=== PATIENT | male | born 1965 | race Caucasian/White ===

== ENCOUNTER → 2021-08-03 13:33 | Outpatient (CLI) | payer OTHER, SELFPAY ==
--- NOTE | 2021-08-03 | DI.RAD.S_ITS ---
PROCEDURE: XR HIP W PEL IF DONE LT 2V INDICATIONS: Low back pain, unspecified/Pain in left hip TECHNIQUE: 2 views of the hip were acquired. COMPARISON: None. FINDINGS: Bones: Fracture deformity noted associated left acetabulum may reflect prior trauma or acetabular repair. Lateral fragmentation noted. Orthopedic screws are noted, and the lower screw is disrupted in its midportion. Both femoral heads maintain an appropriate contour. No dislocation. Mild bilateral joint space narrowing. Cortical regularity in the right iliac crest may reflect donor site. Soft tissues: No suspicious soft tissue calcifications or masses. IMPRESSION: 1. Prior surgical intervention associated with the left acetabular roof appears appropriately healed. Associated orthopedic screw shows failure in in the mid screw without displacement. 2. Mild bilateral acetabular joint space narrowing Approved by: Salazar Lepe M.D. on 08/03/2021 at 14:40
--- NOTE | 2021-08-03 | DI.RAD.S_ITS ---
PROCEDURE: XR LUMBAR SPINE 2-3V INDICATIONS: Low back pain, unspecified/Pain in left hip TECHNIQUE: 3 views of the lumbar spine were acquired. COMPARISON: None. FINDINGS: Bones: 5 [id number] vertebrae are present. There is normal bony alignment. No vertebral body compression fractures in the lumbar spine. No suspicious bony lesions. Facet arthropathy noted in the lower lumbar spine. Minimal anterior wedging at T11-T12 noted Soft tissues: Overlying bowel gas pattern is normal. No suspicious soft tissue calcifications. IMPRESSION: Lower lumbar spine facet arthropathy T11 and T12 anterior wedging, probably physiologic Approved by: Salazar Lepe M.D. on 08/03/2021 at 14:41
== END ==
LOC: RAD 13:45
PROVIDERS: Referring Provider Registered Nurse; Visit Provider Nurse Practitioner Family
DX: M47.816 Spondylosis without myelopathy or radiculopathy, lumbar region (principal); M54.50 Low back pain, unspecified; M25.552 Pain in left hip
CPT/HCPCS: 72100; 73502

== ENCOUNTER → 2021-09-28 11:03 | Outpatient (CLI) | payer OTHER, SELFPAY ==
--- NOTE | 2021-09-28 | DI.RAD.S_ITS ---
PROCEDURE: XR CERVICAL SPINE 2V OR 3V INDICATIONS: Cervicalgia TECHNIQUE: Three view(s) of the cervical spine were acquired. COMPARISON: None. FINDINGS: Bones: No fractures or dislocations to the C7 level. There is a block vertebra of C5 and C6. Surgical intervention of disc spacer at C6-7. Mild endplate spurring at this level. Minor disc height loss C4-5 with mild anterior endplate spurs. There is mild kyphosis in the lower cervical spine without subluxation. The lateral masses of C1 appear intact on the odontoid view. No suspicious bony lesions. Soft tissues: No prevertebral soft tissue swelling. Dystrophic calcifications in the dorsal soft tissue. IMPRESSION: 1. Prior C6-7 disc spacer placement and mild endplate spurring. 2. Mild lower cervical kyphosis without subluxation. Dictated by: Maryellen Bolden M.D. on 09/28/2021 at 13:04 Approved by: Maryellen Bolden M.D. on 09/28/2021 at 13:06
== END ==
PROVIDERS: PCP Registered Nurse; Referring Provider Registered Nurse; Visit Provider Registered Nurse
DX: M40.202 Unspecified kyphosis, cervical region (principal); M54.2 Cervicalgia
CPT/HCPCS: 72040

== ENCOUNTER → 2021-10-21 08:02 | Outpatient (CLI) | payer OTHER, SELFPAY ==
--- NOTE | 2021-10-21 | DI.RAD.S_ITS ---
PROCEDURE: FL SHOULDER INJECTION MR/CT RT INDICATIONS: RIGHT SHOULDER PAIN COMPARISON: None TECHNIQUE: The indications, alternatives, benefits, risks, and complications of the procedure were explained to the patient. Written informed consent was obtained and placed in the chart. The shoulder was examined fluoroscopically and a site for needle placement chosen for entry into the glenohumeral joint from an anterior approach. The skin was prepped and draped in a sterile fashion, and 1% lidocaine infiltrated from skin down to joint capsule. A spinal needle was inserted into the glenohumeral joint, and a small amount of iodinated contrast media injected to confirm intra-articular placement of the needle tip. This was followed by approximately 19 mL dilute solution of a gadolinium containing MR contrast agent. The needle was removed and a dressing was applied. The patient was given postprocedural instructions and sent to the MR suite for MR imaging. FINDINGS: A single fluoroscopic spot image demonstrates intra-articular location of injected iodinated contrast. IMPRESSION: Successful fluoroscopically guided administration of dilute Gadolinium solution into the shoulder joint for MR arthrogram. Dictated by: Chandler Bonds M.D. on 10/21/2021 at 10:22 Approved by: Chandler Bonds M.D. on 10/21/2021 at 10:25
--- NOTE | 2021-10-21 | DI.MRI.S_ITS ---
PROCEDURE: MR SHOULDER RT W CON INDICATIONS: RIGHT SHOULDER PAIN TECHNIQUE: After the administration of 12 mL of dilute intra-articular Gadolinium contrast, oblique coronal T1 and T2 spin echo with fat saturation, oblique sagittal T1 spin echo with and without fat saturation, oblique sagittal T2 fast spin echo with fat saturation, axial T1 spin echo with fat saturation through the shoulder. COMPARISON: None. FINDINGS: Image quality: Excellent. Rotator cuff: Mild T2 signal elevation throughout the supraspinatus and infraspinatus tendons at the humeral insertion sites extending to the musculotendinous junction. Superimposed moderate grade partial-thickness articular surface tearing of the anterior and mid supraspinatus tendon at the humeral insertion site. Superimposed full-thickness tearing of the posterior supraspinatus tendon at the humeral insertion site measuring roughly 3 mm anteroposterior. Low-grade partial-thickness intrasubstance tears of the anterior, mid, and posterior infraspinatus tendon at the humeral insertion site extending the musculotendinous junction. Low-grade partial-thickness articular surface tears of the upper, mid, and inferior aspect of the subscapularis tendon at the humeral insertion site extending to the musculotendinous junction. Teres minor is intact. No rotator cuff atrophy. Bones and bursae: No bone marrow contusions or fractures. Severe acromioclavicular joint degeneration. The acromion demonstrates conventional anatomy, without an os acromiale. Capsule and soft tissues: There is diffuse undercutting of the posterior labrum. The long head of the biceps tendon demonstrates normal location and morphology. The rotator interval appears normal, without fibrosis. The coracohumeral ligament is of normal thickness. No intra-articular bodies. IMPRESSION: 1. Acromioclavicular joint osteoarthritis. 2. Tendinopathy of the supraspinatus and infraspinatus tendons. 3. Moderate grade and full-thickness tearing of the supraspinatus tendon. Low-grade partial-thickness tearing of the infraspinatus and subscapularis tendons. 4. Posterior labral tearing. Dictated by: Naheed Zurita M.D. on 10/21/2021 at 9:17 Approved by: Naheed Zurita M.D. on 10/21/2021 at 9:19
== END ==
PROVIDERS: PCP Registered Nurse; Referring Provider Registered Nurse; Visit Provider Registered Nurse
DX: M19.011 Primary osteoarthritis, right shoulder (principal); M75.121 Complete rotator cuff tear or rupture of right shoulder, not specified as traumatic; S43.491A Other sprain of right shoulder joint, initial encounter
CPT/HCPCS: 23350; 73222; 77002

== ENCOUNTER → 2022-03-02 11:13 | Outpatient (CLI) | payer OTHER, SELFPAY ==
--- NOTE | 2022-03-02 | DI.RAD.S_ITS ---
PROCEDURE: FL SHOULDER INJECTION MR/CT LT INDICATIONS: LEFT SHOULDER PAIN COMPARISON: None. TECHNIQUE: The indications, alternatives, benefits, risks, and complications of the procedure were explained to the patient. Written informed consent was obtained and placed in the chart. The shoulder was examined fluoroscopically and a site for needle placement chosen for entry into the glenohumeral joint from an anterior approach. The skin was prepped and draped in a sterile fashion, and 1% lidocaine infiltrated from skin down to joint capsule. A spinal needle was inserted into the glenohumeral joint, and a small amount of iodinated contrast media injected to confirm intra-articular placement of the needle tip. This was followed by approximately 12 mL dilute solution of a gadolinium containing MR contrast agent. The needle was removed and a dressing was applied. The patient was given postprocedural instructions and sent to the MR suite for MR imaging. FINDINGS: A single fluoroscopic spot image demonstrates intra-articular location of injected iodinated contrast. IMPRESSION: Successful fluoroscopically guided administration of dilute Gadolinium solution into the shoulder joint for MR arthrogram. Dictated by: Alan Galdamez M.D. on 03/02/2022 at 15:43 Approved by: Alan Galdamez M.D. on 03/02/2022 at 15:44
--- NOTE | 2022-03-02 | DI.MRI.S_ITS ---
PROCEDURE: MR SHOULDER LT W CON INDICATIONS: LEFT SHOULDER PAIN TECHNIQUE: After the administration of 12 mL of dilute intra-articular Gadolinium contrast, oblique coronal T1 and T2 spin echo with fat saturation, oblique sagittal T1 spin echo with and without fat saturation, oblique sagittal T2 fast spin echo with fat saturation, axial T1 spin echo with fat saturation through the shoulder. COMPARISON: [facility], MR, MR SHOULDER RT W CON, 10/21/2021, 8:55. FINDINGS: Image quality: Excellent. Rotator cuff: Low-grade articular and bursal surface partial thickness tear involving distal supraspinatus extending to musculotendinous junction is seen. Distal infraspinatus tendinosis is seen. Distal subscapularis tendon is intact. No full-thickness rotator cuff tendon rupture. No rotator cuff muscle atrophy on sagittal images. Bones and bursae: No bone marrow contusions or fractures. Moderate acromioclavicular joint osteoarthritic changes are seen with joint space narrowing, subchondral sclerosis and edema and marginal osteophyte formation depressing on musculotendinous junction of supraspinatus. Capsule and soft tissues: Signal abnormality, contour irregularity and contrast extension in superior anterior labrum at 12 to 1 o'clock position is seen suggestive of superior anterior labral tear. The glenohumeral ligaments appear intact. The long head of the biceps tendon is not visualized intra-articularly. The rotator interval appears normal, without fibrosis. The coracohumeral ligament is of normal thickness. No intra-articular bodies. IMPRESSION: 1. Low-grade articular and bursal surface partial thickness tear involving distal supraspinatus extending to musculotendinous junction. Distal infraspinatus tendinosis. No full-thickness rotator cuff tendon rupture. 2. Moderate acromioclavicular joint osteoarthritis. No fracture or dislocation. No marrow edema. No gross loose bodies. 3. Suggestion of subtle superior anterior labral tear at 12 to 1 o'clock position. 4. Suggestion of ruptured proximal intra-articular portion of long head of biceps with distal retraction of torn bicipital tendon within bicipital groove to the level below distal subscapularis tendon insertion. Dictated by: Paul Ferrell M.D. on 03/02/2022 at 16:42 Approved by: Paul Ferrell M.D. on 03/02/2022 at 16:45
== END ==
PROVIDERS: PCP Registered Nurse
DX: M75.112 Incomplete rotator cuff tear or rupture of left shoulder, not specified as traumatic (principal); M19.012 Primary osteoarthritis, left shoulder; M25.512 Pain in left shoulder
CPT/HCPCS: 23350; 73222

== ENCOUNTER → 2023-03-21 08:31 | Outpatient (CLI) | payer OTHER, SELFPAY ==
--- NOTE | 2023-03-21 | DI.RAD.S_ITS ---
PROCEDURE: XR ANKLE RT MIN 3V INDICATIONS: Pain in right ankle and joints of right foot TECHNIQUE: 3 views of the ankle were acquired. COMPARISON: None. FINDINGS: Bones: No fractures or dislocations. Ankle mortise is normally aligned. No suspicious bony lesions. There is mild osteoarthritic type degenerative change involving the ankle joint. Incidentally noted is an os trigonum. There are small calcaneal heel spurs at the insertion of the plantar fascia and Achilles tendons. Soft tissues: No tibiotalar joint effusion. Achilles tendon appears normal. IMPRESSION: 1. No evidence for acute osseous abnormality involving the right ankle. 2. Mild osteoarthritic type degenerative change involving the right ankle joint. Dictated by: Teofilo Daniels M.D. on 03/21/2023 at 9:01 Approved by: Teofilo Daniels M.D. on 03/21/2023 at 9:04
== END ==
PROVIDERS: PCP Registered Nurse; Referring Provider Nurse Practitioner Family; Visit Provider Nurse Practitioner Family
DX: M25.571 Pain in right ankle and joints of right foot (principal); M89.9 Disorder of bone, unspecified
CPT/HCPCS: 73610

== ENCOUNTER 2024-01-06 18:02 | Emergency (ER) | payer OTHER, SELFPAY ==
[2024-01-06 18:15] VITALS: BP 158/91; PULSE 66; RESP 16; TEMP 36.4; O2SAT 99; BMI 35.2
--- NOTE | 2024-01-06 18:25 | DI.RAD.S_ITS ---
PROCEDURE: XR KNEE RT 3V INDICATIONS: pain in knee, swelling TECHNIQUE: 3 views of the knee were acquired. COMPARISON: None. FINDINGS: Bones: No fractures or dislocations. There is mild tricompartmental osteoarthritis. No significant patellar subluxation. No suspicious bony lesions. Soft tissues: No joint effusion. No suspicious soft tissue calcifications. IMPRESSION: No acute right knee fracture or dislocation. No significant joint effusion. Mild tricompartmental osteoarthritis. Dictated by: Paul Ferrell M.D. on 01/06/2024 at 18:50 Approved by: Paul Ferrell M.D. on 01/06/2024 at 18:51
--- NOTE | 2024-01-06 18:25 | DI.US.S_ITS ---
PROCEDURE: US PERIPH VENOUS LOW EXTREM RT INDICATIONS: PAIN AND SWELLING IN KNEE TECHNIQUE: Real-time imaging, as well as color and pulse Doppler interrogation, were performed of the lower extremity deep veins from the inguinal ligament to the popliteal fossa, with documentation of the visualized calf veins. COMPARISON: None. FINDINGS: The common femoral, femoral, popliteal, and the visualized calf veins are normally compressible, and free of intraluminal thrombus. Color and pulse Doppler demonstrate normal phasic intraluminal flow. There is normal augmentation response to distal compression maneuver. Diffuse soft tissue edema in the calf. IMPRESSION: No findings of lower extremity deep venous thrombosis. Dictated by: Warren Garcia M.D. on 01/06/2024 at 19:42 Approved by: Warren Garcia M.D. on 01/06/2024 at 19:42
--- NOTE | 2024-01-06 22:19 | ED_ITS ---
HPI - Extremity Problem General Chief complaint: Extremity Problem,Nontraumatic Stated complaint: rt knee swelling, trouble walking Time Seen by Provider: 01/06/24 22:19 History of Present Illness HPI Narrative: 58-year-old male history of chronic arthritis complaint of right knee pain for the past 7 days with 3-4 days of increased right lower extremity swelling with pain behind the knee in the lateral aspect. Patient does have lot of varicose veins reports history nerve damage. Patient states no warmth erythema or skin changes no bruising. Had a sliver in his foot while ago removed it but has not had any signs of redness or infection. He does work he has been a lot on his ti me on his knees and being bent over in awkward positions. Has noticed couple times when moving from a kneeling position that he is tweaked his knee rate it feel much worse. Has had some increased swelling over the knee and now has sort of worked its way down to the calf. Takes meloxicam as needed sometimes other NSAIDs for pain. Has had back issues in the past has had prednisone. Patient has not had any prior surgeries to that knee. Denies any known trauma. States it is painful to weightbear on it particularly when going down stairs. Denies any snaps clicks or pops, denies any sense of instability. Related Data Home Medications Medication Instructions Recorded Confirmed meloxicam 7.5 mg tablet 7.5 mg PO DAILY 01/06/24 01/06/24 Previous Rx's Medication Instructions Recorded hydrocodone 5 mg-acetaminophen 325 1 tab PO Q6H PRN pain #10 tabs 01/06/24 mg tablet prednisone 20 mg tablet 40 mg (2 x 20 mg) PO DAILY #6 tabs 01/06/24 Allergies Allergy/AdvReac Type Severity Reaction Status Date / Time No Known Drug Allergies Allergy Unverified 01/06/24 17:34 Review of Systems Review of Systems ROS Unobtainable: All systems reviewed & are unremarkable except as noted in HPI and below Patient History Social History Smoking Status: Never smoker Smoking Status: Never smoker Exam Narrative Exam Narrative: GENERAL: Alert and oriented x three, male in mild distress HEENT: Head normocephalic, atraumatic, EOMI, pupils reactive, face symmetric, moist mucous membranes NECK: Supple, full range of motion CARDIOVASCULAR: Regular rate and rhythm without murmurs, rubs or gallops. RESPIRATORY: Breath sounds equal bilaterally, no wheezes rales or rhonchi. EXTREMITIES: Normal range of motion, no clubbing. Neurovascularly intact. Patient does not have any bony tenderness on exam, right knee is swollen than the left. Patient has a little bit of mild swelling of the upper calf. No warmth or erythema. Nontender with no ballotable effusion over the knee itself. Patient has tenderness with posterior drawer test but not with anterior, normal valgus varus testing. No joint laxity. Compression test is negative. Patient has 2+ pulse. Has healing superficial puncture wound to the bottom of his splint but is clean dry intact without any erythema or signs of infection. 5/5 strength. NEUROLOGICAL: Cranial nerves II through XII grossly intact. Moving all extremities SKIN: Warm, dry, no petechiae, no rashes or lesions. Initial Vital Signs Initial Vital Signs: Vital Signs Temperature 97.6 F 01/06/24 18:15 Pulse Rate 66 01/06/24 18:15 Respiratory Rate 16 01/06/24 18:15 Blood Pressure 158/91 H 01/06/24 18:15 Pulse Oximetry 99 01/06/24 18:15 Oxygen Delivery Method Room Air 01/06/24 18:15 Course Orders Ordered: Discontinued Medications Hydrocodone Bitart/Acetaminophen (Hydrocodone/Acet 5/325 Prepack) 1 bottle MISC DIRECTED ONE Stop: 01/06/24 22:43 Last Admin: 01/06/24 22:47 Dose: 1 bottle Documented By: [facility]NG Vital Signs Vital signs: Vital Signs - 8 hr 01/06/24 22:24 01/06/24 22:25 01/06/24 22:25 Pulse Rate 64 67 Respiratory Rate 18 Blood Pressure 184/104 H 184/104 H Pulse Oximetry 99 98 Oxygen Delivery Method Room Air 01/06/24 22:30 01/06/24 22:30 01/06/24 23:03 Pulse Rate 60 56 L Respiratory Rate 14 Blood Pressure 178/112 H 178/112 H Pulse Oximetry 99 98 Oxygen Delivery Method Room Air Room Air MDM - Extremity (Nontraumatic) Imaging Data Extremity x-ray #1: Radiologist's Impression: Close Vascular Ultrasound (Signed) Warren Garcia - 01/06/24 Knee X-Ray (Signed) Paul Ferrell - 01/06/24 Ankle X-Ray (Signed) Teofilo Daniels - 03/21/23 Shoulder MRI (Signed) Paul Ferrell - 03/02/22 Injection for MRI Arthrogram (Signed) Alan Galdamez - 03/02/22 Shoulder MRI (Signed) Naheed Zurita - 10/21/21 Injection for MRI Arthrogram (Signed) Chandler Bonds - 10/21/21 Cervical Spine X-Ray (Signed) Maryellen Bolden - 09/28/21 Lumbar Spine X-Ray (Signed) Salazar Lepe - 08/03/21 Hip X-Ray (Signed) Salazar Lepe - 08/03/[address] [address] XRay Report Signed Patient: Percy Ortega MR#: [id number] : 1965 Acct:[id number] Age/Sex: 58 / M Date of Service: 01/06/24 Loc: ED Accession Number: [id number] Procedure: XR knee RT 3V Ordering Provider: Suzie Ray D.O. PROCEDURE: XR KNEE RT 3V INDICATIONS: pain in knee, swelling TECHNIQUE: 3 views of the knee were acquired. COMPARISON: None. FINDINGS: Bones: No fractures or dislocations. There is mild tricompartmental osteoarthritis. No significant patellar subluxation. No suspicious bony lesions. Soft tissues: No joint effusion. No suspicious soft tissue calcifications. IMPRESSION: No acute right knee fracture or dislocation. No significant joint effusion. Mild tricompartmental osteoarthritis. Dictated by: Paul Ferrell M.D. on 01/06/2024 at 18:50 Approved by: Paul Ferrell M.D. on 01/06/2024 at 18:51 US - DVT: Radiologist's Impression: Close Vascular Ultrasound (Signed) Warren Garcia - 01/06/24 Knee X-Ray (Signed) Mona Ferrell01/06/24 Ankle X-Ray (Signed) Teofilo Daniels - 03/21/23 Shoulder MRI (Signed) Paul Ferrell - 03/02/22 Injection for MRI Arthrogram (Signed) Alan Galdamez - 03/02/22 Shoulder MRI (Signed) Naheed Zurita - 10/21/21 Injection for MRI Arthrogram (Signed) Chandler Bonds - 10/21/21 Cervical Spine X-Ray (Signed) YuanMaryellen - 09/28/21 Lumbar Spine X-Ray (Signed) Salazar eLpe - 08/03/21 Hip X-Ray (Signed) Lepe,Salazar - 08/03/21 [address] [address] Ultrasound Report Signed Patient: Percy Ortega MR#: [id number] : 1965 Acct:[id number] Age/Sex: 58 / M Date of Service: 01/06/24 Loc: ED Accession Number: [id number] Procedure: US periph venous low extrem rt Ordering Provider: Suzie Ray D.O. PROCEDURE: US PERIPH VENOUS LOW EXTREM RT INDICATIONS: PAIN AND SWELLING IN KNEE TECHNIQUE: Real-time imaging, as well as color and pulse Doppler interrogation, were performed of the lower extremity deep veins from the inguinal ligament to the popliteal fossa, with documentation of the visualized calf veins. COMPARISON: None. FINDINGS: The common femoral, femoral, popliteal, and the visualized calf veins are normally compressible, and free of intraluminal thrombus. Color and pulse Doppler demonstrate normal phasic intraluminal flow. There is normal augmentation response to distal compression maneuver. Diffuse soft tissue edema in the calf. IMPRESSION: No findings of lower extremity deep venous thrombosis. Dictated by: Warren Garcia M.D. on 01/06/2024 at 19:42 Approved by: Warren Garcia M.D. on 01/06/2024 at 19:42 [facility] Narrative Medical decision making narrative: 58-year-old male who has had some knee pain he has been a lot of time on his knees kneeling moving have likely stress the area. X-ray shows some tricompartmental osteoarthritis, no other acute changes DVT is negative there is a little bit of soft tissue edema. No obvious Manning cyst noted. Patient has some discomfort with posterior drawer but otherwise normal joint laxity. Suspect patient has strain or sprain of his knee or possible some internal derangement. Discussed knee immobilizer, avoiding working on his knees. Weightbear as tolerated we will give short course of pain medication. Patient asked for a couple tablets of prednisone states he is responded very well he does not have any signs of gout, uric acid or septic joint discussed isn't typical but states he has not done well with steroid injections in the past in joints because her typically not effective. X-ray shows no acute fracture dislocation no significant joint effusion mild tricompartmental osteoarthritis. DVT ultrasound shows no acute change. Diffuse soft tissue edema in the calf. Discharge Plan Departure Patient Disposition: Home Clinical Impression: Knee pain, right Instructions: DI for Knee Pain Activity Restrictions/Additional Instructions: Please follow up with primary care and/or orthopedic surgery. Contacts included below. You can continue your meloxicam as prescribed. If in adequate you can take 1 tablet of pain medication every 6 hours as needed. This medication can make you sleepy do not drive, perform hazardous activities or make any major decisions while taking it. This medication will make you constipated please take a stool softener once to twice daily until stools are soft and regular. Can take prednisone but this may not be helpful it has not typically prescribed for joints. Take this medication with food. [facility] [place] Please return for fevers, warmth or redness of the knee, rapidly worsening symptoms, worsening swelling, new numbness tingling or weakness or other new or concerning changes. Prescriptions: New prednisone 20 mg tablet 40 mg PO DAILY Qty: 6 0RF hydrocodone-acetaminophen 5-325 mg tablet 1 tab PO Q6H PRN (Reason: pain) Qty: 10 0RF No Action meloxicam 7.5 mg tablet 7.5 mg PO DAILY Referrals: Erasmo Moon ARNP [Primary Care Provider] - Stand Alone Forms: Patient Portal/API
[2024-01-06 22:24] VITALS: BP 184/104; PULSE 64; RESP 18; O2SAT 99
[2024-01-06 22:25] VITALS: BP 184/104; PULSE 67; O2SAT 98
[2024-01-06 22:30] VITALS: BP 178/112; PULSE 60; O2SAT 99
[2024-01-06] MEDS: HYDROCODONE/ACET 5/325 PREPACK 1 BOTTLE MISC (22:47)
[2024-01-06 23:03] VITALS: BP 178/112; PULSE 56; RESP 14; O2SAT 98
== END 2024-01-06 23:05 | disposition home or self-care (01) ==
PROVIDERS: Emergency Provider Emergency Medicine; PCP Registered Nurse
DX: M25.561 Pain in right knee (principal); M17.10 Unilateral primary osteoarthritis, unspecified knee
CPT/HCPCS: 73562; 93971; 99282; 99283

== ENCOUNTER → 2024-10-16 11:54 | Outpatient (CLI) | payer OTHER, SELFPAY ==
--- NOTE | 2024-10-16 11:57 | DI.RAD.S_ITS ---
PROCEDURE: XR SHOULDER RT MIN 2V INDICATIONS: Right shoulder strain TECHNIQUE: 3 views of the shoulder were acquired. COMPARISON: None. FINDINGS: Bones: No fractures or dislocations. The humeral head is moderately high- riding. Mild to moderate glenohumeral joint space narrowing and marginal osteophytosis and moderate to severe hypertrophic acromioclavicular arthropathy and joint space narrowing. No suspicious bony lesions. Visualized ribs appear intact. Soft tissues: No suspicious soft tissue calcifications. IMPRESSION: Degenerative change of the glenohumeral and acromioclavicular joints without evidence of acute bony abnormality. Dictated by: Chad Olivier M.D. on 10/17/2024 at 0:00 Approved by: Chad Olivier M.D. on 10/17/2024 at 0:01
== END ==
PROVIDERS: PCP Registered Nurse; Referring Provider Registered Nurse; Visit Provider Registered Nurse
DX: S46.911A Strain of unspecified muscle, fascia and tendon at shoulder and upper arm level, right arm, initial encounter (principal); X58.XXXA Exposure to other specified factors, initial encounter
CPT/HCPCS: 73030